=== PATIENT | female | born 1955 | race Caucasian/White ===

== ENCOUNTER 2017-01-25 16:45 | Inpatient (IN) | payer OTHER ==
[~2017-01-25] VITALS: Ht 162.6 cm; Wt 69.2 kg
[~2017-01-25 16:45] MED LIST: BENA20TA48 PO
[2017-01-25] MEDS ORDERED: ACETAMINOPHEN 325 MG TAB PO ONE (19:00)
[2017-01-25] MEDS ORDERED: SOD CHLORIDE 0.9% 1,000 ML IV ONE (19:00)
--- NOTE | 2017-01-25 19:14 | ERD ---
ER Documentation Chief Complaint Date/Time DATE: 01/25/17 TIME: 19:09 Chief Complaint right knee pain/swelling x 3 days HPI 61-year-old female presents here in emergency department for complaints of right knee pain and swelling for 3 days. Patient denies any trauma in affected area. Patient's complaint of pain throbbing pain, 8/10 scale, as was upon movement. Patient denies any numbness or tingling. Patient started to have fever today. Patient took naproxen at home with only mild relief. ROS All systems reviewed and are negative except as per history of present illness. Medications Home Meds Reported Medications Benazepril Hcl* (Benazepril Hcl*) 20 Mg Tablet, 20 MG PO DAILY, TAB 11/08/13 Allergies Allergies: Coded Allergies: No Known Allergy (Unverified , 11/08/13) PMhx/Soc Medical and Surgical Hx: pt denies Surgical Hx History of Surgery: No Anesthesia Reaction: No Hx Neurological Disorder: No Hx Respiratory Disorders: No Hx Cardiac Disorders: No Hx Psychiatric Problems: No Hx Miscellaneous Medical Probl: Yes (HTN) Hx Alcohol Use: No Hx Substance Use: No Hx Tobacco Use: No FmHx Family History: No coronary disease, No diabetes, No other Physical Exam Vitals Vital Signs Date Time Temp Pulse Resp B/P Pulse Ox O2 Delivery O2 Flow Rate FiO2 01/25/17 16:53 100.4 83 20 117/56 98 Physical Exam GENERAL: The patient is well developed and appropriate for usual state of health, in no apparent distress. CHEST: Clear to auscultation bilaterally. There are no rales, wheezes or rhonchi. HEART: Regular rate and rhythm. No murmurs, clicks, rubs or gallops. No S3 or S4. ABDOMEN: Soft, nontender and nondistended. Good bowel sounds. No rebound or guarding. No gross peritonitis. No gross organomegaly or masses. No Maldonado sign or McBurney point tenderness. BACK: No midline or flank tenderness. EXTREMITIES: Tenderness on palpation noted in the right knee, mild tenderness on palpation on the lateral and medial and patellar aspect of the right knee, no erythema noted, no fluctuance noted, tenderness on palpation, able to do for range of motion but with restriction because of pain. Equal pulses bilaterally. There is no peripheral clubbing, cyanosis or edema. No focal swelling or erythema. Full range of motion. Grossly neurovascularly intact. NEURO: Alert and oriented. Cranial nerves 2-12 intact. Motor strength in all 4 extremities with 5/5 strength. Sensation grossly intact. Normal speech and gait. SKIN: There is no apparent rash or petechia. The skin is warm and dry. HEMATOLOGIC AND LYMPHATIC: There is no evidence of excessive bruising or lymphedema. No gross cervical, axillary, or inguinal lymphadenopathy. Result Diagram: 01/25/17193401/25/171934 Results 24 hrs Laboratory Tests Test 01/25/17 19:35 White Blood Count 13.610^3/ul Red Blood Count 4.2610^6/ul Hemoglobin 12.5g/dl Hematocrit 38.5% Mean Corpuscular Volume 90.4fl Mean Corpuscular Hemoglobin 29.3pg Mean Corpuscular Hemoglobin Concent 32.5g/dl Red Cell Distribution Width 12.6% Platelet Count 30107^3/UL Mean Platelet Volume 9.1fl Neutrophils % 75.3% Lymphocytes % 13.2% Monocytes % 10.4% Eosinophils % 0.1% Basophils % 0.4% Nucleated Red Blood Cells % 0.0/100WBC Neutrophils # 10.310^3/ul Lymphocytes # 1.810^3/ul Monocytes # 1.410^3/ul Eosinophils # 0.010^3/ul Basophils # 0.110^3/ul Nucleated Red Blood Cells # 0.010^3/ul Erythrocyte Sedimentation Rate 75mm/Hr Sodium Level 141mmol/L Potassium Level 3.7mmol/L Chloride Level 105mmol/L Carbon Dioxide Level 26mmol/L Anion Gap 14 Blood Urea Nitrogen 13mg/dl Creatinine 0.73mg/dl Glucose Level 133mg/dl Lactic Acid Level 1.3mmol/L Uric Acid 5.4mg/dl Calcium Level 9.5mg/dl Total Bilirubin 0.6mg/dl Direct Bilirubin 0.00mg/dl Indirect Bilirubin 0.6mg/dl Aspartate Amino Transf (AST/SGOT) 30IU/L Alanine Aminotransferase (ALT/SGPT) 34IU/L Alkaline Phosphatase 119IU/L C-Reactive Protein 26.5mg/dl Total Protein 8.8g/dl Albumin 4.4g/dl Globulin 4.40g/dl Albumin/Globulin Ratio 1.00 Current Medications Medications (Trade) Dose Ordered Sig/Kenn Route PRN Reason Start Time Stop Time Status Last Admin Dose Admin Acetaminophen 650 mg 650 mg ONCE ONCE PO 01/25/17 19:00 01/25/17 19:03 DC 01/25/17 19:53 Sodium Chloride (NS) 1,000 ml @ 1,000 mls/hr Q1H ONCE IV 01/25/17 19:00 01/25/17 19:59 DC 01/25/17 19:53 Lidocaine (Xylocaine 1% (Mdv) 20 ml) 5 ml ONCE ONCE SC 01/25/17 21:30 01/25/17 21:31 DC Procedures/MDM Medical Decision Making: She has elevated WBC, elevated ESR and CRP, having fever, small joint effusion, this was stopped, sample was sent to the laboratory , patient will be admitted to the hospital for further evaluation and management , to possibly rule out septic arthritis. Joint effusion aspiration was done by Dr. Fabiano Solis. Patient will be admitted to the hospital, Dr. Stephens will facilitate patient's admission. Disclaimer: Inadvertent spelling and grammatical errors are likely due to EHR/ dictation software use and do not reflect on the overall quality of patient care. Also, please note that the electronic time recorded on this note does not necessarily reflect the actual time of the patient encounter. Departure Diagnosis: Primary Impression: Knee pain Chronicity: acute Laterality: right Qualified Code: M25.561 - Acute pain of right knee Additional Impression: Fever Fever type: unspecified Qualified Code: R50.9 - Fever, unspecified fever cause Condition: DANIEL Myles NP Jan 25, 2017 19:14
[2017-01-25 20:12] LABS: BASOPHIL # 0.1 10^3/ul (0.0-0.1); BASOPHILS % 0.4 % (0.0-2.0); EOSINOPHILS % 0.1 % (0.0-7.0); HEMATOCRIT 38.5 % (37.0-47.0); HEMOGLOBIN 12.5 g/dl (12.0-16.0); LYMPHOCYTES # 1.8 10^3/ul (0.8-2.9); LYMPHOCYTES % 13.2 % (15.0-51.0); MEAN CORPUSCULAR HEMOGLOBIN 29.3 pg (29.0-33.0); MEAN CORPUSCULAR HGB CONC 32.5 g/dl (32.0-37.0); MEAN CORPUSCULAR VOLUME 90.4 fl (82.0-101.0); MEAN PLATELET VOLUME 9.1 fl (7.4-10.4); MONOCYTE # 1.4 10^3/ul (0.3-0.9); MONOCYTES % 10.4 % (0.0-11.0); NEUTROPHIL # 10.3 10^3/ul (1.6-7.5); NEUTROPHILS % 75.3 % (39.0-77.0); PLATELET COUNT 365 10^3/UL (140-415); RED BLOOD COUNT 4.26 10^6/ul (4.20-5.40); RED CELL DISTRIBUTION WIDTH 12.6 % (11.5-14.5); WHITE BLOOD COUNT 13.6 10^3/ul (4.8-10.8)
--- NOTE | 2017-01-25 20:21 | RADRPT ---
PROCEDURE: XR Knee. CLINICAL INDICATION: Pain and swelling TECHNIQUE: AP, lateral and tunnel views of the right knee were obtained. COMPARISON: None. FINDINGS: No fracture or osseous lesion is identified. There is no evidence for dislocation. Mineralization is within normal limits. Small spurs arising from the posterior patella and tibial spines are prese nt with mild tricompartmental osteoarthrosis. A small joint effusion is noted. There is mild nonspe cific soft tissue swelling. RPTAT:HJJR IMPRESSION: 1. Mild tricompartmental osteoarthrosis of the right knee. 2. Small suprapatellar joint effusion and diffuse nonspecific soft tissue swelling. Physician Fiordaliza Date Time Electronically viewed and signed by Physician Fiordaliza on 01/25/2017 20:20 /
[2017-01-25 20:35] LABS: ALBUMIN 4.4 g/dl (3.3-4.9); BILIRUBIN,INDIRECT 0.6 mg/dl (0-1.1); BILIRUBIN,TOTAL 0.6 mg/dl (0.2-1.3); CALCIUM 9.5 mg/dl (8.4-10.2); CREATININE 0.73 mg/dl (0.44-1.00); POTASSIUM 3.7 mmol/L (3.5-5.1); TOTAL PROTEIN 8.8 g/dl (6.1-8.1)
[2017-01-25 20:47] LABS: C-REACTIVE PROTEIN 26.5 mg/dl (0.0-0.9)
[2017-01-25] MEDS ORDERED: LIDOCAINE 1% (MDV) 20 ML INJ SC ONE (21:30)
--- NOTE | 2017-01-25 22:05 | EN ---
Date/Time of Note Date/Time of Note DATE: 01/25/17 TIME: 22:03 ER Progress Note Procedure note-patient presents with decreased range of motion, warmth and redness of the right knee associated with low-grade fever and elevated ESR and leukocytosis. There is no evidence of erythema or induration superficially. Right knee was prepped with Betadine and chlorhexidine. 0.5 cc lidocaine was used superficially for anesthesia. 18-gauge needle was used to aspirate the right knee joint. 1 cc of bloody fluid was aspirated only. Patient tolerated procedure well and the wound was dressed. Sent for culture, fluid analysis pending small amount of fluid aspirated. GEORGIA LINK MD Jan 25, 2017 22:05
[2017-01-25] MEDS ORDERED: LISI20TA11 PO (22:33)
[2017-01-25] MEDS ORDERED: NAPR-688 PO (22:34)
--- NOTE | 2017-01-25 23:24 | RADRPT ---
PROCEDURE: XR Chest. CLINICAL INDICATION: Fever. TECHNIQUE: Single frontal view. COMPARISON: None. FINDINGS: The lungs are clear. The heart is mildly enlarged. There is no pleural effusion. There is no pneumothorax. IMPRESSION: 1. Mild cardiomegaly. 2. Clear lungs. RPTAT: QQ .Eddie Jones MD, MD Date Time Electronically viewed and signed by .Eddie Jones MD, MD on 01/25/2017 23:23 .R/
[2017-01-25] MEDS ORDERED: ACETAMINOPHEN 325 MG TAB PO PRN (23:30)
[2017-01-25] MEDS ORDERED: ONDANSETRON 4 MG INJ IV PRN (23:30)
[2017-01-26 00:57] VITALS: BP 120/60; RESP 20
[2017-01-26 01:26] VITALS: Ht 162.6 cm; Wt 69.2 kg
[2017-01-26] MEDS ORDERED: morphine 4 MG/ML VIAL IV PRN (01:30)
[2017-01-26] MEDS ORDERED: ACETAMINOPHEN 325 MG TAB PO PRN (01:30)
[2017-01-26] MEDS ORDERED: hydrALAzine 20 MG INJ IV PRN (01:30)
[2017-01-26 05:22] LABS: BASOPHILS % 0.4 % (0.0-2.0); EOSINOPHILS # 0.1 10^3/ul (0.0-0.5); EOSINOPHILS % 0.6 % (0.0-7.0); HEMATOCRIT 31.1 % (37.0-47.0); HEMOGLOBIN 10.4 g/dl (12.0-16.0); LYMPHOCYTES # 1.9 10^3/ul (0.8-2.9); LYMPHOCYTES % 18.8 % (15.0-51.0); MEAN CORPUSCULAR HEMOGLOBIN 30.2 pg (29.0-33.0); MEAN CORPUSCULAR HGB CONC 33.4 g/dl (32.0-37.0); MEAN CORPUSCULAR VOLUME 90.4 fl (82.0-101.0); MEAN PLATELET VOLUME 9.2 fl (7.4-10.4); MONOCYTE # 1.2 10^3/ul (0.3-0.9); NEUTROPHILS % 67.8 % (39.0-77.0); PLATELET COUNT 313 10^3/UL (140-415); RED BLOOD COUNT 3.44 10^6/ul (4.20-5.40); RED CELL DISTRIBUTION WIDTH 12.6 % (11.5-14.5); WHITE BLOOD COUNT 10.3 10^3/ul (4.8-10.8)
[2017-01-26 05:44] LABS: ALBUMIN 3.3 g/dl (3.3-4.9); ALBUMIN/GLOBULIN RATIO 0.86; BILIRUBIN,INDIRECT 0.6 mg/dl (0-1.1); BILIRUBIN,TOTAL 0.6 mg/dl (0.2-1.3); CALCIUM 8.8 mg/dl (8.4-10.2); CREATININE 0.6 mg/dl (0.44-1.00); MAGNESIUM 2.2 mg/dl (1.7-2.5); PHOSPHORUS 2.5 mg/dl (2.5-4.9); POTASSIUM 3.5 mmol/L (3.5-5.1); TOTAL PROTEIN 7.1 g/dl (6.1-8.1)
--- NOTE | 2017-01-26 07:32 | HP ---
Date/Time of Note Date/Time of Note DATE: 01/26/17 TIME: 07:26 Assessment/Plan VTE Prophylaxis VTE Prophylaxis Intervention: heparin Lines/Catheters IV Catheter Type (from Nrs): Saline Lock Assessment/Plan Assessment/Plan 1. Right knee cellulitis -X-ray showed a small joint effusion. Knee was stopped in the ER was removal of about 1 cc of bloody fluid. -IV antibiotic -Pain management -ID consult 2. Sepsis, as evidenced by fever and leukocytosis, secondary to right knee cellulitis -See #1 3. Hypertension: Blood pressure within goal -Continue antihypertensives adjustment as needed HPI/ROS Admit Date/Time Admit Date/Time Jan 25, 2017 at 23:28 Hx of Present Illness This is a 61-year-old female with a history of hypertension who presented to the emergency department complaining of right knee pain, swelling and warmth. She denied trauma to the knee. She reported subjective fever. Denied chest pain, shortness of breath, abdominal, nausea/vomiting. When she presented to the ER x-ray of the knee shows a small joint effusion and a mild osteoarthrosis. Her knee was tapped with removal of about 1 cc of bloody fluid. She was given antibiotic. She did present was a WBC of 13.6, and temp of 100.4. . PMH/Family/Social Social History Smoking Status: Never smoker Exam/Review of Systems Vital Signs Vitals Vital Signs Date Time Temp Pulse Resp B/P Pulse Ox O2 Delivery O2 Flow Rate FiO2 01/26/17 00:57 98.2 68 20 120/60 95 Intake and Output 01/25/17 01/25/17 01/26/17 15:00 23:00 07:00 Intake Total 600 ml Balance 600 ml Exam Constitutional: alert, oriented, well developed Head: atraumatic, normocephalic Eyes: EOMI, PERRL Respiratory: clear to auscultation, normal air movement Cardiovascular: nl pulses, regular rate and rhythm Gastrointestinal: soft Musculoskeletal: other (Right knee swelling, erythema, tenderness and warmth to touch) Extremities: normal pulses Labs Result Diagram: 01/26/17 04301/26/17 043 Medications Medications Current Medications Lisinopril (Zestril) 10 mg DAILY PO ; Start 01/26/17 at 09:00 Morphine Sulfate (morphine) 3 mg Q4H PRN IV PAIN; Start 01/26/17 at 01:30 Acetaminophen (Tylenol Tab) 650 mg Q6H PRN PO PAIN AND OR ELEVATED TEMP; Start 01/26/17 at 01:30 Hydralazine HCl (Apresoline) 10 mg Q4H PRN IV ELEVATED BLOOD PRESSURE; Start at 01:30 Heparin Sodium (Porcine) (Heparin (5000 Units/0.5 ml)) 5,000 unit Q12 SC ; Start 01/26/17 at 09:00 KARTIK GORMAN MD Jan 26, 2017 07:32
[2017-01-26 07:50] VITALS: BP 106/55; RESP 18
[2017-01-26] MEDS ORDERED: VANCOMYCIN IV PER PHARMACY XX SCH (09:30)
--- NOTE | 2017-01-26 10:29 | PN ---
Date/Time of Note Date/Time of Note DATE: 01/26/17 TIME: 10:14 Assessment/Plan VTE Prophylaxis VTE Prophylaxis Intervention: ambulation Lines/Catheters IV Catheter Type (from [facility]): Saline Lock Assessment/Plan Chief Complaint/Hosp Course 61-year-old female presented with decreased range of motion, warmth and redness of the right knee associated with low-grade fever was noted with elevated ESR and leukocytosis and suprapatellar joint effusion. 1. Right knee tricompartmental osteoarthrosis with suprapatellar joint effusion with soft tissue swelling. This is likely secondary to possible wear and tear with osteoarthrosis. -Status post aspiration of the right knee joint with1 cc of bloody fluid -Follow up with fluid analysis for Gram stain and crystal identification if any. Obtain uric acid level to rule out gout. -Start broad-spectrum IV vancomycin, ibuprofen 600 mg 3 times daily. -ID consult requested. 2. SIRS secondary to #1. No evidence to suggest sepsis at this time unless proven otherwise. -Treatment as per above. 3. Hypertension: Blood pressure within goal -Continue antihypertensives adjustment as needed Plan: Continue current management. Follow-up with ID recommendation. Patient would get benefit from outpatient orthopedic follow-up. She was seen in collaboration with . Problems: Subjective 24 Hr Interval Summary Free Text/Dictation Patient with improved pain on right knee. There is no redness. However right knee is moderately swollen and with mild tenderness. Exam/Review of Systems Vital Signs Vitals Vital Signs Date Time Temp Pulse Resp B/P Pulse Ox O2 Delivery O2 Flow Rate FiO2 01/26/17 07:50 97.9 72 18 106/55 98 Intake and Output 01/25/17 01/25/17 01/26/17 15:00 23:00 07:00 Intake Total 600 ml Balance 600 ml Exam General: Well developed,adequately built, not in any acute distress . HEENT: Normocephalic, Atraumatic, No laceration or hematoma; Eyes: PEERL, Conjunctiva clear, Anicteric sclera Neck: Supple without any lymphadenopathy, nontender, no JVD, no carotid bruits, trachea midline, no thyromegaly Cardiac: S1, S2 auscultated, regular rhythm and rate, no mumurs or gallop Pulmonary: Normal respiratory effort. Chest clear to auscultation bilaterally, no adventitious breath sounds GI: Abdomen normal to inspection. Soft, non tender, non- distended, no masses, no rebound tenderness or guarding. Bowel sounds active on all four quadrants Genitourinary: Deferred Extremities: Right knee with mild tenderness/swelling. No redness. Otherwise, no cyanosis, clubbing, or edema. Pulses [2+] bilaterally. Full ROM on all four extremities. No focal weakness appreciated. Neurologic: Alert to person, place, time, and situation. Affect appropriate, intact sensation. Skin: Clean,dry, and intact. No ecchymosis, no rashes, or lesions Results Result Diagram: 01/26/17 0430 01/26/17 0430 Results 24 hrs Laboratory Tests Test 01/25/17 19:35 01/26/17 04:30 White Blood Count 13.6 H 10.3 # Red Blood Count 4.26 3.44 L Hemoglobin 12.5 10.4 L Hematocrit 38.5 31.1 L Mean Corpuscular Volume 90.4 90.4 Mean Corpuscular Hemoglobin 29.3 30.2 Mean Corpuscular Hemoglobin Concent 32.5 33.4 Red Cell Distribution Width 12.6 12.6 Platelet Count 365 313 Mean Platelet Volume 9.1 9.2 Neutrophils % 75.3 67.8 Lymphocytes % 13.2 L 18.8 Monocytes % 10.4 12.0 H Eosinophils % 0.1 0.6 Basophils % 0.4 0.4 Nucleated Red Blood Cells % 0.0 0.0 Neutrophils # 10.3 H 7.0 Lymphocytes # 1.8 1.9 Monocytes # 1.4 H 1.2 H Eosinophils # 0.0 0.1 Basophils # 0.1 0.0 Nucleated Red Blood Cells # 0.0 0.0 Erythrocyte Sedimentation Rate 75 H Sodium Level 141 142 Potassium Level 3.7 3.5 Chloride Level 105 110 Carbon Dioxide Level 26 27 Anion Gap 14 9 # Blood Urea Nitrogen 13 7 Creatinine 0.73 0.60 Glucose Level 133 98 Lactic Acid Level 1.3 Uric Acid 5.4 Calcium Level 9.5 8.8 Total Bilirubin 0.6 0.6 Direct Bilirubin 0.00 0.00 Indirect Bilirubin 0.6 0.6 Aspartate Amino Transf (AST/SGOT) 30 29 Alanine Aminotransferase (ALT/SGPT) 34 32 Alkaline Phosphatase 119 90 C-Reactive Protein 26.5 H Total Protein 8.8 H 7.1 # Albumin 4.4 3.3 # Globulin 4.40 H 3.80 H Albumin/Globulin Ratio 1.00 0.86 Phosphorus Level 2.5 Magnesium Level 2.2 Medications Medications Current Medications Lisinopril (Zestril) 10 mg DAILY PO ; Start 01/26/17 at 09:00 Morphine Sulfate (morphine) 3 mg Q4H PRN IV PAIN; Start 01/26/17 at 01:30 Acetaminophen (Tylenol Tab) 650 mg Q6H PRN PO PAIN AND OR ELEVATED TEMP; Start 01/26/17 at 01:30 Hydralazine HCl (Apresoline) 10 mg Q4H PRN IV ELEVATED BLOOD PRESSURE; Start at 01:30 Heparin Sodium (Porcine) (Heparin (5000 Units/0.5 ml)) 5,000 unit Q12 SC ; Start 01/26/17 at 09:00 Ibuprofen 600 mg 600 mg TID PO ; Start 01/26/17 at 13:00 Vancomycin HCl/ Sodium Chloride (Vancocin/NS) 250 ml @ 83.333 mls/ hr LOADING ONCE IVPB ; Start 01/26/17 at 12:00; Stop 01/26/17 at 14:59 ELIAN LOZOYA NP Jan 26, 2017 10:29
[2017-01-26] MEDS: HEPARIN 5,000 UNIT/0.5 ML VIAL SC SCH ×2 (11:00→21:12)
[2017-01-26] MEDS: LISINOPRIL 10 MG TAB PO SCH (11:02)
[2017-01-26 11:03] VITALS: BP 118/60; PULSE 74
[2017-01-26 11:15] LABS: ADD UMIC YES; UR ASCORBIC ACID NEGATIVE (NEGATIVE); UR BACTERIA FEW /HPF (NONE SEEN); UR BILIRUBIN (Dip) NEGATIVE (NEGATIVE); UR BLOOD (Dip) 1+ mg/dL (NEGATIVE); UR CLARITY CLEAR (CLEAR); UR COLOR YELLOW (YELLOW); UR GLUCOSE (Dip) NEGATIVE (NEGATIVE); UR KETONES (Dip) TRACE mg/dL (NEGATIVE); UR LEUKOCYTE ESTERASE (Dip) TRACE Leu/ul (NEGATIVE); UR NITRITE (Dip) NEGATIVE (NEGATIVE); UR RBC 5 /HPF (0-5); UR SPECIFIC GRAVITY (Dip) 1.009 (1.003-1.030); UR TOTAL PROTEIN (Dip) NEGATIVE (NEGATIVE); UR UROBILINOGEN (Dip) NEGATIVE (NEGATIVE)
[2017-01-26] MEDS ORDERED: VANCOMYCIN 1.25 GM in SOD CHLORIDE 0.9% 250 ML IVPB ONE (12:00)
[2017-01-26] MEDS: IBUPROFEN 600 MG TAB PO SCH ×2 (12:28→21:10)
[2017-01-26 14:47] VITALS: BP 126/62; RESP 18
--- NOTE | 2017-01-26 20:10 | CONS ---
DATE OF ADMISSION: 01/25/2017 DATE OF CONSULTATION: 01/26/2017 REASON FOR CONSULTATION: Antibiotic management. HISTORY OF PRESENT ILLNESS: Belem Wilson is a 61-year-old female with a number of problems who comes in with right knee cellulitis and is being seen for antibiotic management. Her past problems include: 1. Hypertension. 2. Right knee pain with swelling and warmth. Patient denies trauma to the knee. She reports subjective fever. She denies chest pain, shortness of breath. When she presented to the emergency room, x-ray showed small joint effusion, mild osteoarthrosis. Her knee was tapped with removal of 1 cc of bloody fluid. On admission, the temperature was 100.4, white count was 13.6. On the , today, her white count is 10.3. BUN and creatinine 7/0.6, and her knee is much better according to the patient. PAST MEDICAL HISTORY: Operations as outlined. FAMILY HISTORY: Noncontributory. SOCIAL HISTORY: She does not smoke, drink, or abuse drugs. ALLERGIES: NONE TO PENICILLIN, SULFA, OR FOODS. MEDICATIONS: Per chart. REVIEW OF SYSTEMS: As per HPI. PHYSICAL EXAMINATION: GENERAL: Patient is a well-developed, well-nourished female who is alert, responsive, in no acute distress. VITAL SIGNS: Stable. She is afebrile. SKIN: Without generalized rash. HEENT: Within normal limits. NECK: Supple. Lymph nodes nonpalpable. CHEST: Decreased breath sounds at the bases. HEART: Without murmur or gallop. ABDOMEN: Soft, nontender without organosplenomegaly or masses. EXTREMITIES: The right knee is somewhat swollen but with markedly decreased redness. There is hardly any redness at this point. RECTAL: Deferred. GENITAL: Deferred. NEUROLOGICAL: No focal neurological abnormalities. PLAN: Belem Wilson is responding very well to vancomycin. She should be ready to be discharged shortly. I do not believe that her knee was infected. I believe that she had a cellulitis above the knee possibly from kneeling. She can go home on Bactrim DS b.i.d. or doxycycline 100 mg b.i.d. I will dictate my findings to the hospitalist. Dictated By: Doyle Clarke MD JD/yonas/kriss /Document#: [id number]
[2017-01-26 21:37] VITALS: BP 129/61; RESP 20
[2017-01-26] MEDS: VANCOMYCIN 750 MG in SOD CHLORIDE 0.9% 150 ML IVPB SCH (23:39)
[2017-01-27 05:18] LABS: BASOPHILS % 0.5 % (0.0-2.0); EOSINOPHILS # 0.1 10^3/ul (0.0-0.5); EOSINOPHILS % 1.7 % (0.0-7.0); HEMATOCRIT 31.7 % (37.0-47.0); HEMOGLOBIN 10.2 g/dl (12.0-16.0); LYMPHOCYTES # 2.1 10^3/ul (0.8-2.9); LYMPHOCYTES % 27.5 % (15.0-51.0); MEAN CORPUSCULAR HEMOGLOBIN 29.1 pg (29.0-33.0); MEAN CORPUSCULAR HGB CONC 32.2 g/dl (32.0-37.0); MEAN CORPUSCULAR VOLUME 90.6 fl (82.0-101.0); MEAN PLATELET VOLUME 9.4 fl (7.4-10.4); MONOCYTE # 0.6 10^3/ul (0.3-0.9); MONOCYTES % 8.4 % (0.0-11.0); NEUTROPHIL # 4.6 10^3/ul (1.6-7.5); NEUTROPHILS % 61.5 % (39.0-77.0); PLATELET COUNT 356 10^3/UL (140-415); RED CELL DISTRIBUTION WIDTH 12.7 % (11.5-14.5); WHITE BLOOD COUNT 7.5 10^3/ul (4.8-10.8)
[2017-01-27 05:39] LABS: CREATININE 0.59 mg/dl (0.44-1.00); POTASSIUM 3.5 mmol/L (3.5-5.1)
[2017-01-27 07:00] VITALS: BP 108/60; RESP 18
[2017-01-27] MEDS: IBUPROFEN 600 MG TAB PO SCH ×2 (08:48→12:06)
[2017-01-27] MEDS: LISINOPRIL 10 MG TAB PO SCH (08:49)
[2017-01-27] MEDS: HEPARIN 5,000 UNIT/0.5 ML VIAL SC SCH (08:52)
--- NOTE | 2017-01-27 09:52 | PDOCDIS ---
Discharge Instructions CONDITION Patient Condition: Stable HOME CARE INSTRUCTIONS: Diet Instructions: Regular ACTIVITY: Activity Restrictions Comment: Avoid kneeling. FOLLOW UP/APPOINTMENTS Follow-up Plan 1.Follow up with primary care physician in 1 week-recommend outpatient orthopedic evaluation for osteoarthritis If you don't have one please let someone know, we can give you resources that may help you pick one. You may also call your insurance company to assign one to you. Review your medication list with your nurse before leaving and if you need new prescriptions please let your nurse know. I may have made changes to your home medications or given you new prescriptions, please let your primary doctor know as well. Stay compliant with your medications and report any side effects to your PCP or pharmacist. Return to the ER if you have any concerns and cannot reach your doctors or call your insurance company, they usually have a nurse that can help you. 2. Call 911 or go to the nearest emergency room if experiencing loss of consciousness, dizziness, chest pain, shortness of breath, vomiting/abdominal pain, speech difficulties, motor weakness or any unusual symptoms. ELIAN LOZOYA NP Jan 27, 2017 09:52
[2017-01-27] MEDS ORDERED: DOXY100T20 PO (09:57)
[2017-01-27] MEDS ORDERED: IBUP-1542 PO (09:57)
[2017-01-27] MEDS ORDERED: LISI10TA2 PO (09:57)
[2017-01-27] MEDS ORDERED: SULF1TAB31 PO (09:57)
--- NOTE | 2017-01-27 10:10 | DS ---
Date/Time of Note Date/Time of Note DATE: 01/27/17 TIME: 10:04 Discharge Summary Admission/Discharge Info Admit Date/Time Jan 25, 2017 at 23:28 Discharge Date/Time Discharge Diagnosis 1. Right knee tricompartmental osteoarthrosis with suprapatellar joint effusion with soft tissue swelling. This is likely secondary to possible wear and tear with osteoarthrosis. Gram stain/uric acid negative. 2. SIRS secondary to #1. Resolved 3. Hypertension Patient Condition: Stable Consults ,ID Procedures 01/25/17. rIGHT KNEE xRAY IMPRESSION 1. Mild tricompartmental osteoarthrosis of the right knee. 2. Small suprapatellar joint effusion and diffuse nonspecific soft tissue swelling. 01/25/17. Aspiration of the right knee joint with 1 mL of bloody fluid Hospital Course This is a 61-year-old female with a past medical history hypertension, who presented to the emergency for evaluation of worsening pain, decreased range of motion associated with edema on her right knee. X-ray showed small joint effusion with mild osteoarthrosis of knee. Patient had a low-grade temperature 100.4 with elevated white count 13.6. She also had elevated ESR. Otherwise her initial labs and vital signs within acceptable range. Patient had undergone aspiration of the right knee joint with 1 mL of bloody fluid which was sent to studies. She was then admitted. She was continued on IV vancomycin. She did not have any further leukocytosis or fever. Patient was evaluated by infectious disease colleagues. There was no suggestion of sepsis at this time. Patient responded well to antibiotics and NSAIDs. Cultures came back negative. Gram stain also negative. Uric acid also was normal. At this time, there is no further inpatient workup indicated and patient is medically stable to be discharged on continuation of oral antibiotics per ID recommendation. I also discussed patient in regards to the findings of early osteoarthrosis for which she would be benefited from outpatient orthopedic evaluation. She was also instructed that her condition can get worse with wear and tear with osteoarthrosis.She was advised to avoid kneeling and weightbearing on her knee.Patient verbalized discharge instructions. Disposition: Home with recommendation of outpatient orthopedic follow-up Approximally 60 minutes was spent in coordinating the discharge on this patient. Patient was seen in collaboration with . Home Meds Active Scripts Sulfamethoxazole/Trimethoprim* (Bactrim Ds* Tablet) 1 Each Tablet, 1 TAB PO BID for 10 Days, #20 TAB Prov:LOZOYA,ELIAN V. [facility] 01/27/17 Doxycycline Hyclate* (Doxycycline Hyclate*) 100 Mg Tablet.dr, 100 MG PO BID for 7 Days, #14 TAB Prov:LOZOYA,ELIAN V. [facility]NA[facility] 01/27/17 Ibuprofen* (Ibuprofen*) 600 Mg Tablet, 600 MG PO TID, #30 TAB Prov:LOZOYA,ELIAN V. [facility]NA[facility] 01/27/17 Lisinopril* (Lisinopril*) 10 Mg Tablet, 10 MG PO DAILY, #30 TAB Prov:LOZOYA,ELIAN V. [facility]NA[facility] 01/27/17 Discontinued Reported Medications Naproxen* (Naproxen*) 500 Mg Tablet, 500 MG PO Q8H, TAB 01/25/17 Lisinopril* (Lisinopril*) 20 Mg Tablet, 20 MG PO DAILY, #30 TAB 01/25/17 Benazepril Hcl* (Benazepril Hcl*) 20 Mg Tablet, 20 MG PO DAILY, TAB 11/08/13 Follow-up Plan 1.Follow up with primary care physician in 1 week-recommend outpatient orthopedic evaluation for osteoarthritis If you don't have one please let someone know, we can give you resources that may help you pick one. You may also call your insurance company to assign one to you. Review your medication list with your nurse before leaving and if you need new prescriptions please let your nurse know. I may have made changes to your home medications or given you new prescriptions, please let your primary doctor know as well. Stay compliant with your medications and report any side effects to your PCP or pharmacist. Return to the ER if you have any concerns and cannot reach your doctors or call your insurance company, they usually have a nurse that can help you. 2. Call 911 or go to the nearest emergency room if experiencing loss of consciousness, dizziness, chest pain, shortness of breath, vomiting/abdominal pain, speech difficulties, motor weakness or any unusual symptoms. Primary Care Provider [facility] Pending Labs Laboratory Tests Test 01/26/17 10:30 01/27/17 04:24 Urine Color YELLOW (YELLOW) Urine Clarity CLEAR (CLEAR) Urine pH 7.0 (5.0-9.0) Urine Specific Lane 1.009 (1.003-1.030) Urine Ketones TRACEmg/dL (NEGATIVE) Urine Nitrite NEGATIVEmg/dL (NEGATIVE) Urine Bilirubin NEGATIVEmg/dL (NEGATIVE) Urine Urobilinogen NEGATIVEmg/dL (NEGATIVE) Urine Leukocyte Esterase TRACELeu/ul (NEGATIVE) Urine Microscopic RBC 5/HPF (0-5) Urine Microscopic WBC 4/HPF (0-5) Urine Bacteria FEW/HPF (NONE SEEN) Urine Hemoglobin 1+mg/dL (NEGATIVE) Urine Glucose NEGATIVEmg/dL (NEGATIVE) Urine Total Protein NEGATIVEmg/dl (NEGATIVE) White Blood Count 7.510^3/ul (4.8-10.8) Red Blood Count 3.5010^6/ul (4.20-5.40) Hemoglobin 10.2g/dl (12.0-16.0) Hematocrit 31.7% (37.0-47.0) Mean Corpuscular Volume 90.6fl (82.0-101.0) Mean Corpuscular Hemoglobin 29.1pg (29.0-33.0) Mean Corpuscular Hemoglobin Concent 32.2g/dl (32.0-37.0) Red Cell Distribution Width 12.7% (11.5-14.5) Platelet Count 61720^3/UL (140-415) Mean Platelet Volume 9.4fl (7.4-10.4) Neutrophils % 61.5% (39.0-77.0) Lymphocytes % 27.5% (15.0-51.0) Monocytes % 8.4% (0.0-11.0) Eosinophils % 1.7% (0.0-7.0) Basophils % 0.5% (0.0-2.0) Nucleated Red Blood Cells % 0.0/100WBC (0.0-0.0) Neutrophils # 4.610^3/ul (1.6-7.5) Lymphocytes # 2.110^3/ul (0.8-2.9) Monocytes # 0.610^3/ul (0.3-0.9) Eosinophils # 0.110^3/ul (0.0-0.5) Basophils # 0.010^3/ul (0.0-0.1) Nucleated Red Blood Cells # 0.010^3/ul (0.0-0.0) Sodium Level 143mmol/L (135-144) Potassium Level 3.5mmol/L (3.5-5.1) Chloride Level 110mmol/L (97-110) Carbon Dioxide Level 25mmol/L (21-31) Anion Gap 12 (8-16) Blood Urea Nitrogen 9mg/dl (7-20) Creatinine 0.59mg/dl (0.44-1.00) Glucose Level 125mg/dl (70-220) Calcium Level 9.0mg/dl (8.4-10.2) ELIAN LOZOYA V. [facility]NAGER [facility] Jan 27, 2017 10:10
[2017-01-27] MEDS: VANCOMYCIN 750 MG in SOD CHLORIDE 0.9% 150 ML IVPB SCH (12:06)
== END 2017-01-27 14:42 | disposition home or self-care (01) | DRG 565 ==
LOC: FTE 16:45 → MS1 23:28
PROVIDERS: ADMIT Internal Medicine; ATTEND Internal Medicine
PROC: 0S9C3ZX Drainage of Right Knee Joint, Percutaneous Approach, Diagnostic (ICD-10-PCS; principal; 2017-01-25)
DX: M25.461 Effusion, right knee (principal); R65.10 Systemic inflammatory response syndrome (SIRS) of non-infectious origin without acute organ dysfunction; L03.115 Cellulitis of right lower limb; M17.11 Unilateral primary osteoarthritis, right knee; I10 Essential (primary) hypertension
CPT/HCPCS: 71010; 73562; 80048; 80053; 81001; 83605; 83735; 84100; 84560; 85025; 85651; 86140; 87040; 87070; 87086; 93005; J1644; J2270; J3370; J7030; J7050

== ENCOUNTER 2017-02-02 16:23 | Emergency (ER) | payer OTHER ==
[~2017-02-02] VITALS: Ht 160 cm; Wt 67.5 kg
[~2017-02-02 16:23] MED LIST changes: -BENA20TA48 PO; +IBUP-1542 PO; +LISI10TA2 PO; +SULF1TAB31 PO
[2017-02-02 16:25] VITALS: Ht 160 cm; Wt 67.5 kg
[2017-02-02] MEDS ORDERED: KETOROLAC 30 MG INJ IV STA (17:02)
[2017-02-02] MEDS ORDERED: SODIUM CHLORIDE 0.9% 1L BAG IV* STA (17:02)
[2017-02-02] MEDS ORDERED: CEFTRIAXONE 1 GM/50 ML (PMX) 50 ML IVPB STA (17:02)
--- NOTE | 2017-02-02 17:32 | RADRPT ---
PROCEDURE: US Lower extremity Venous. CLINICAL INDICATION: Left leg swelling. TECHNIQUE: Multiple sonographic images of the left lower extremity deep venous system was obtained utilizing lawrence scale, color-flow, compressive sonography and doppler imaging with augmentation. COMPARISON: None. FINDINGS: There is normal compressibility and flow within the left common femoral, femoral and popliteal veins . Visualized portions of the calf veins are patent. IMPRESSION: No sonographic evidence for deep venous thrombosis in the left leg. RPTAT:AAJJ Physician Sugar Date Time Electronically viewed and signed by Physician Sugar on 02/02/2017 17:31 /
[2017-02-02 18:08] LABS: BASOPHIL # 0.1 10^3/ul (0.0-0.1); BASOPHILS % 0.4 % (0.0-2.0); EOSINOPHILS % 0.3 % (0.0-7.0); HEMATOCRIT 35.2 % (37.0-47.0); HEMOGLOBIN 11.6 g/dl (12.0-16.0); LYMPHOCYTES # 1.2 10^3/ul (0.8-2.9); LYMPHOCYTES % 10.9 % (15.0-51.0); MEAN CORPUSCULAR HEMOGLOBIN 30.1 pg (29.0-33.0); MEAN CORPUSCULAR VOLUME 91.2 fl (82.0-101.0); MEAN PLATELET VOLUME 8.6 fl (7.4-10.4); MONOCYTE # 0.8 10^3/ul (0.3-0.9); PLATELET COUNT 508 10^3/UL (140-415); RED BLOOD COUNT 3.86 10^6/ul (4.20-5.40); RED CELL DISTRIBUTION WIDTH 12.2 % (11.5-14.5); WHITE BLOOD COUNT 11.2 10^3/ul (4.8-10.8)
[2017-02-02 18:15] LABS: ADD UMIC YES; UR ASCORBIC ACID NEGATIVE (NEGATIVE); UR BILIRUBIN (Dip) NEGATIVE (NEGATIVE); UR BLOOD (Dip) 2+ mg/dL (NEGATIVE); UR CLARITY CLEAR (CLEAR); UR COLOR STRAW (YELLOW); UR GLUCOSE (Dip) NEGATIVE (NEGATIVE); UR KETONES (Dip) NEGATIVE (NEGATIVE); UR LEUKOCYTE ESTERASE (Dip) NEGATIVE Leu/ul (NEGATIVE); UR NITRITE (Dip) NEGATIVE (NEGATIVE); UR RBC 2 /HPF (0-5); UR SPECIFIC GRAVITY (Dip) 1.008 (1.003-1.030); UR TOTAL PROTEIN (Dip) NEGATIVE (NEGATIVE); UR UROBILINOGEN (Dip) NEGATIVE (NEGATIVE)
[2017-02-02 18:26] LABS: INR 1.17; PT RATIO 1.2
[2017-02-02 18:27] LABS: PARTIAL THROMBOPLASTIN TIME 36.2 Sec (25.0-35.0)
[2017-02-02 18:30] LABS: ALANINE AMINOTRANSFERASE 30 IU/L (13-69); ALBUMIN/GLOBULIN RATIO 0.85; ALKALINE PHOSPHATASE 109 IU/L (42-121); ANION GAP 15 (8-16); ASPARTATE AMINO TRANSFERASE 19 IU/L (15-46); BILIRUBIN,INDIRECT 0.4 mg/dl (0-1.1); BILIRUBIN,TOTAL 0.4 mg/dl (0.2-1.3); BLOOD UREA NITROGEN 15 mg/dl (7-20); CALCIUM 9.6 mg/dl (8.4-10.2); CARBON DIOXIDE 23 mmol/L (21-31); CHLORIDE 104 mmol/L (97-110); CREATINE KINASE 52 IU/L (23-200); GLUCOSE 185 mg/dl (70-220); POTASSIUM 3.7 mmol/L (3.5-5.1); SODIUM 138 mmol/L (135-144); TOTAL PROTEIN 8.7 g/dl (6.1-8.1)
[2017-02-02 18:38] LABS: TROPONIN-I < 0.012 ng/ml (0.00-0.12)
--- NOTE | 2017-02-02 18:38 | RADRPT ---
PROCEDURE: XR Chest. CLINICAL INDICATION: Possible Sepsis TECHNIQUE: Single frontal view of the chest was obtained. COMPARISON: 01/25/2017 FINDINGS: The cardiomediastinal silhouette is normal size. Pulmonary vasculature is within normal limits. Th e lungs are clear. No signs of pleural fluid or pneumothorax are seen. The osseous structures and soft tissues are unre markable. IMPRESSION: No evidence for active cardiopulmonary disease. RPTAT: HBST .Crow Montana MD, MD Date Time Electronically viewed and signed by .Crow Montana MD, MD on 02/02/2017 18:37 .T/
[2017-02-02] MEDS ORDERED: HYDR-902 PO (19:05)
[2017-02-02] MEDS ORDERED: ONDA4TAB14 PO (19:05)
--- NOTE | 2017-02-02 19:44 | ERD ---
ER Documentation Chief Complaint Date/Time DATE: 02/02/17 TIME: 19:42 Chief Complaint left knee pain swelling x 2 days HPI Patient is a 61-year-old female who presents with left knee pain and swelling. The patient started on Monday with pain and then on Monday with swelling. She also feels pain radiating down her left leg into her left calf. She is currently on Bactrim as an outpatient. She had a fever at the doctor's office today per the family. She was recently admitted on January 25 for right knee pain and swelling and she had a joint aspiration but infectious disease consultation did not feel that she had a true joint infection. The patient was discharged on January 27. [facility] to the [facility] who sent her to the emergency department for evaluation. Upon review of old medical records the patient just had one previous visit to the ER on January 25 when she was admitted for right-sided knee pain. ROS All systems reviewed and are negative except as per history of present illness. Medications Home Meds Active Scripts Ondansetron (Ondansetron Odt) 4 Mg Tab.rapdis, 4 MG PO Q6H Y for NAUSEA AND/OR VOMITING, #10 TAB Prov:FANY SO MD 02/02/17 Hydrocodone/Acetaminophen (Bruni 10-325 Tablet) 1 Each Tablet, 1 TAB PO Q6H Y for PAIN, #7 TAB Prov:FANY SO MD 02/02/17 Sulfamethoxazole/Trimethoprim* (Bactrim Ds* Tablet) 1 Each Tablet, 1 TAB PO BID for 10 Days, #20 TAB Prov:ELIAN LOZOYA NP 01/27/17 Ibuprofen* (Ibuprofen*) 600 Mg Tablet, 600 MG PO TID, #30 TAB Prov:ELIAN LOZOYA NP 01/27/17 Lisinopril* (Lisinopril*) 10 Mg Tablet, 10 MG PO DAILY, #30 TAB Prov:ELIAN LOZOYA NP 01/27/17 Discontinued Reported Medications Naproxen* (Naproxen*) 500 Mg Tablet, 500 MG PO Q8H, TAB 01/25/17 Lisinopril* (Lisinopril*) 20 Mg Tablet, 20 MG PO DAILY, #30 TAB 01/25/17 Allergies Allergies: Coded Allergies: No Known Allergy (Unverified , 02/02/17) PMhx/Soc History of Surgery: No Anesthesia Reaction: No Hx Neurological Disorder: No Hx Respiratory Disorders: No Hx Cardiac Disorders: Yes (HTN) Hx Psychiatric Problems: No Hx Miscellaneous Medical Probl: No Hx Alcohol Use: No Hx Substance Use: No Hx Tobacco Use: No Smoking Status: Never smoker FmHx Family History: No diabetes Physical Exam Vitals Vital Signs Date Time Temp Pulse Resp B/P Pulse Ox O2 Delivery O2 Flow Rate FiO2 02/02/17 16:25 98.1 82 19 121/56 98 Physical Exam Const: No acute distress Head: Atraumatic Eyes: Normal Conjunctiva ENT: Normal External Ears, Nose and Mouth. Neck: Full range of motion..~ No meningismus. Resp: Clear to auscultation bilaterally Cardio: Regular rate and rhythm, no murmurs Abd: Soft, non tender, non distended. Normal bowel sounds Skin: No signs of cellulitis of lower extremities bilaterally Back: No midline or flank tenderness Ext: No joint effusion to the left, no warmth to touch, no signs of cellulitis Neur: Awake and alert Psych: Normal Mood and Affect Result Diagram: 02/02/17 1725 02/02/17 1725 Results 24 hrs Laboratory Tests Test 02/02/17 17:25 02/02/17 19:08 White Blood Count 11.210^3/ul Red Blood Count 3.8610^6/ul Hemoglobin 11.6g/dl Hematocrit 35.2% Mean Corpuscular Volume 91.2fl Mean Corpuscular Hemoglobin 30.1pg Mean Corpuscular Hemoglobin Concent 33.0g/dl Red Cell Distribution Width 12.2% Platelet Count 28996^3/UL Mean Platelet Volume 8.6fl Neutrophils % 81.0% Lymphocytes % 10.9% Monocytes % 7.0% Eosinophils % 0.3% Basophils % 0.4% Nucleated Red Blood Cells % 0.0/100WBC Neutrophils # 9.010^3/ul Lymphocytes # 1.210^3/ul Monocytes # 0.810^3/ul Eosinophils # 0.010^3/ul Basophils # 0.110^3/ul Nucleated Red Blood Cells # 0.010^3/ul Prothrombin Time 15.0Sec Prothrombin Time Ratio 1.2 INR International Normalized Ratio 1.17 Activated Partial Thromboplast Time 36.2Sec Urine Color STRAW Urine Clarity CLEAR Urine pH 6.0 Urine Specific [place] 1.008 Urine Ketones NEGATIVEmg/dL Urine Nitrite NEGATIVEmg/dL Urine Bilirubin NEGATIVEmg/dL Urine Urobilinogen NEGATIVEmg/dL Urine Leukocyte Esterase NEGATIVELeu/ul Urine Microscopic RBC 2/HPF Urine Microscopic WBC 0/HPF Urine Hemoglobin 2+mg/dL Urine Glucose NEGATIVEmg/dL Urine Total Protein NEGATIVEmg/dl Sodium Level 138mmol/L Potassium Level 3.7mmol/L Chloride Level 104mmol/L Carbon Dioxide Level 23mmol/L Anion Gap 15 Blood Urea Nitrogen 15mg/dl Creatinine 0.90mg/dl Glucose Level 185mg/dl Lactic Acid Level 1.1mmol/L 1.0mmol/L Calcium Level 9.6mg/dl Total Bilirubin 0.4mg/dl Direct Bilirubin 0.00mg/dl Indirect Bilirubin 0.4mg/dl Aspartate Amino Transf (AST/SGOT) 19IU/L Alanine Aminotransferase (ALT/SGPT) 30IU/L Alkaline Phosphatase 109IU/L Creatine Kinase 52IU/L Troponin I < 0.012ng/ml Total Protein 8.7g/dl Albumin 4.0g/dl Globulin 4.70g/dl Albumin/Globulin Ratio 0.85 Current Medications Medications (Trade) Dose Ordered Sig/Kenn Route PRN Reason Start Time Stop Time Status Last Admin Dose Admin Sodium Chloride 2090 ml 2,090 ml BOLUS OVER 2 HOURS STAT IV* 02/02/17 17:02 02/02/17 17:04 DC 02/02/17 17:53 Ceftriaxone Sodium (Rocephin) 50 ml @ 100 mls/hr ONCE STAT IVPB 02/02/17 17:02 02/02/17 17:31 DC 02/02/17 17:53 Ketorolac Tromethamine (Toradol) 30 mg ONCE STAT IV 02/02/17 17:02 02/02/17 17:04 DC 02/02/17 17:53 Procedures/MDM Chest x-ray negative per radiology. Ultrasound of the left lower extremity negative for DVT per radiology. Patient is a 61-year-old female who presents with left knee pain and left-sided calf pain. Her vital signs are normal here and she has no fever. Laboratory studies are basically normal with a normal white count and normal electrolytes. Her CK level is normal and I doubt rhabdomyolysis or myositis. Ultrasound of the left lower extremity shows no signs of DVT. Physical exam of the left leg shows no signs of cellulitis, abscess, or joint effusion. I doubt septic joint or other serious bacterial infection at this time. I believe outpatient management is appropriate and I will give the patient a prescription for Bruni and Zofran for symptomatic relief. I do not believe the patient requires readmission to the hospital at this time and I believe outpatient management is appropriate but the patient should follow-up closely with the primary doctor within 24-48 hours for reevaluation. Departure Diagnosis: Primary Impression: Leg pain Laterality: left Qualified Code: M79.605 - Pain of left lower extremity Additional Impression: Knee pain Chronicity: acute Laterality: left Qualified Code: M25.562 - Acute pain of left knee Condition: Fair Patient Instructions: Knee Pain, Uncertain Cause Additional Instructions: Llame al doctor MAANA y maritza frank DUONG PARA DENTRO DE 1-2 SHERWOOD.Dgale a la secretaria que nosotros le instruimos hacer esta duong.Avise o llame si melchor condicin se empeora antes de la duong. Regresa aqui si peor o no mejor. FANY SO MD Feb 02, 2017 19:44
== END 2017-02-02 22:05 | disposition home or self-care (01) ==
LOC: E/R 16:23
DX: M79.605 Pain in left leg (principal); I10 Essential (primary) hypertension
CPT/HCPCS: 36415; 71010; 80053; 81001; 82550; 83605; 84484; 85025; 85610; 85730; 87040; 87086; 93971; 96374; 96375; 99284; J0696; J1885; J7030